=== PATIENT | male | born 2000 | race Caucasian/White ===

== ENCOUNTER 2021-10-15 15:54 | Emergency (ER) | payer OTHER ==
[~2021-10-15] VITALS: Ht 188 cm; Wt 60.9 kg
[2021-10-15 15:58] VITALS: TEMP 99.1
--- NOTE | 2021-10-15 16:13 | NUR ---
Patient's father Jason ([phone]) notified. Jason lives in [place].
[2021-10-15 16:30] LABS: BASO % 0.2 % (0.0-2.0); EOS # 0.1 K/mm3 (0.0-0.7); GRAN # 7.8 K/mm3 (1.4-6.5); GRAN % 71.1 % (42.2-75.2); HEMATOCRIT 43.4 % (42.0-52.0); HEMOGLOBIN 14.8 g/dl (13.5-18.0); LYMPH # 2.4 K/mm3 (1.2-3.4); LYMPH % 22.2 % (20.0-51.0); MEAN CELL VOLUME 89 fl (80.0-100.0); MEAN CORPUSCULAR HEMOGLOBIN 30 pg (27-31); MEAN CORPUSCULAR HGB CONC 34 g/dl (33.0-37.0); MEAN PLATELET VOLUME 10.3 fl (7.4-10.4); MONO # 0.6 K/mm3 (0.1-0.6); MONO % 5.1 % (1.7-9.3); PLATELET COUNT 194 K/mm3 (130-400); RED BLOOD COUNT 4.87 M/mm3 (4.20-5.60); REDCELL DISTRIBUTION WIDTH-CV 12.2 % (11.5-14.5)
[2021-10-15 16:56] LABS: ALANINE AMINOTRANSFERASE 98 U/L (0-55); ALBUMIN 3.8 gm/dL (3.5-5.0); ALKALINE PHOSPHATASE 43 U/L (40-150); ANION GAP 12 mmol/L (7-16); AST,SGOT 121 U/L (5-34); BLOOD UREA NITROGEN 14 mg/dL (9-21); CALCIUM 8.5 mg/dL (8.4-10.2); CARBON DIOXIDE 22 mmol/L (22-29); CHLORIDE 107 mmol/L (98-107); CREATININE, serum 0.79 mg/dL (0.72-1.25); GLUCOSE 160 mg/dL (70-99); POTASSIUM 4.3 mmol/L (3.5-4.5); SODIUM 141 mmol/L (136-145); TOTAL PROTEIN 6.2 gm/dL (6.2-8.1)
[2021-10-15 17:02] LABS: ALCOHOL(ethanol),MEDICAL < 10 mg/dL (0-10)
[2021-10-15 17:52] VITALS: BP 123/83; PULSE 96
== END 2021-10-15 17:57 | disposition short-term general hospital (02) ==
LOC: COL.ER 15:54 → EDBD 16:07 → COL.ER 16:07
PROVIDERS: Personal Emergency Response Attendant
DX: S11.91XA Laceration without foreign body of unspecified part of neck, initial encounter (principal); S20.311A Abrasion of right front wall of thorax, initial encounter; S00.81XA Abrasion of other part of head, initial encounter; S30.811A Abrasion of abdominal wall, initial encounter; S27.0XXA Traumatic pneumothorax, initial encounter; Z28.311 Partially vaccinated for COVID-19; V23.4XXA Motorcycle driver injured in collision with car, pick-up truck or van in traffic accident, initial encounter; Y92.410 Unspecified street and highway as the place of occurrence of the external cause
CPT/HCPCS: J2405; J3010; Q9967